=== PATIENT | female | born 1945 | race Caucasian/White ===

== ENCOUNTER 2021-05-17 17:29 | Emergency (ER) | payer MEDICARE, BC ==
[~2021-05-17] VITALS: Ht 175.3 cm; Wt 68.5 kg
[2021-05-17 17:53] LABS: HEMOGLOBIN 12.7 gm/dl (12.3-15.3); RED BLOOD COUNT 4.29 M/UL (4.00-5.10); WHITE BLOOD COUNT 4.2 K/UL (4.5-11.0)
[2021-05-17 18:21] LABS: BUN/CREATININE RATIO 21 (0-10)
== END 2021-05-17 18:52 | disposition short-term general hospital (02) ==
LOC: ER1 17:29
PROVIDERS: Emergency Medicine
DX: I63.9 Cerebral infarction, unspecified (principal); I10 Essential (primary) hypertension; R29.704 NIHSS score 4
CPT/HCPCS: 70450; 71045; 80053; 82550; 82553; 83874; 84484; 85025; 85610; 85730; 93005; 96374; 99285; J2997

== ENCOUNTER 2021-10-19 06:59 | Emergency (ER) | payer MEDICARE, BC ==
[2021-10-19 07:31] LABS: HEMOGLOBIN 13.7 gm/dl (12.3-15.3); RED BLOOD COUNT 4.68 M/UL (4.00-5.10); WHITE BLOOD COUNT 5.1 K/UL (4.5-11.0)
[2021-10-19 07:59] LABS: BUN/CREATININE RATIO 22 (0-10)
== END 2021-10-19 21:52 | disposition short-term general hospital (02) ==
LOC: ER1 06:59
PROVIDERS: Family Medicine
DX: I69.922 Dysarthria following unspecified cerebrovascular disease (principal); G83.11 Monoplegia of lower limb affecting right dominant side; G81.91 Hemiplegia, unspecified affecting right dominant side; I10 Essential (primary) hypertension; I69.992 Facial weakness following unspecified cerebrovascular disease; Z88.0 Allergy status to penicillin; I69.920 Aphasia following unspecified cerebrovascular disease
CPT/HCPCS: 70450; 70496; 70498; 80053; 82550; 82553; 83874; 84484; 85025; 85610; 93005; 99285; Q9967

== ENCOUNTER 2022-04-22 15:21 | Emergency (ER) | payer MEDICARE, BC ==
[2022-04-22 15:51] LABS: HEMOGLOBIN 11.2 gm/dl (12.3-15.3); RED BLOOD COUNT 3.9 M/UL (4.00-5.10); WHITE BLOOD COUNT 5.5 K/UL (4.5-11.0)
[2022-04-22 16:13] LABS: BUN/CREATININE RATIO 35 (0-10)
[2022-04-22 21:33] LABS: BUN/CREATININE RATIO 33 (0-10)
== END 2022-04-23 06:48 | disposition left against medical advice (07) ==
LOC: ER1 15:21
PROVIDERS: Emergency Medicine
DX: I63.9 Cerebral infarction, unspecified (principal); E83.52 Hypercalcemia; Z87.820 Personal history of traumatic brain injury
CPT/HCPCS: 51702; 70450; 70496; 70498; 71045; 80053; 82550; 82553; 83735; 84484; 85025; 85610; 85730; 93005; 96374; 99283; J1940; Q9967